=== PATIENT | male | born 1980 | race Hispanic/Latino ===

== ENCOUNTER 2024-02-25 21:08 | Emergency (ER) | payer SELFPAY ==
[2024-02-25] MEDS ORDERED: dexAMETHasone 10 MG/ML VIAL ONE (21:36)
--- NOTE | 2024-02-25 21:37 | ER ---
Nurse's Notes [facility] Name: Oumar Borja Age: 43 yrs Sex: Male : 1980 Arrival Date: 02/25/2024 Time: 21:08 Bed 20 Private MD: Diagnosis: Peritonsillar abscess Presentation: 02/24 21:21 Chief complaint: I have swelling on the right side of the roof of my mouth and the jb4 right side of my uvula. I was sick last week, it got better, then I started noticing last night my throat was feeling weird and today I noticed the swelling. Coronavirus screen: At this time, the client does not indicate any symptoms associated with coronavirus-19. Ebola Screen: No symptoms or risks identified at this time. Initial Sepsis Screen: Does the patient meet any 2 criteria? No. Patient's initial sepsis screen is negative. Does the patient have a suspected source of infection? No. Patient's initial sepsis screen is negative. Risk Assessment: Do you want to hurt yourself or someone else? Patient reports no desire to harm self or others. Onset of symptoms was February 25, 2024. Transition of care: patient was not received from another setting of care. 21:21 Method Of Arrival: Ambulatory jb4 21:21 Acuity: STEPHEN 3 jb4 Historical: - Allergies: 21:25 PENICILLINS; jb4 - PMHx: 21:25 None; jb4 - PSHx: 21:25 Right knee; jb4 - Immunization history:: Adult Immunizations up to date. - Infectious Disease History:: Denies. - Social history:: Smoking status: Patient denies any tobacco usage or history of. Screenin:19 [facility] ED Fall Risk Assessment (Adult) History of falling in the last 3 months, bm8 including since admission No falls in past 3 months (0 pts). [facility] ED Fall Risk Assessment (Adult) Confusion or Disorientation No (0 pts) Intoxicated or Sedated No (0 pts) Impaired Gait No (0 pts) Mobility Assist Device Used No (0 pt) Altered Elimination No (0 pt) Score/Fall Risk Level 0 - 2 = Low Risk Oriented to surroundings, Maintained a safe environment, Educated pt \T\ family on fall prevention, incl call for assistance when getting out of bed, Assessed \T\ reinforced patient's understanding of fall precautions, Hourly rounding (assess needs \T\ fall precautionary measures) done, Used ambulatory aids as needed (educated on \T\ assisted with), Used gait belt as appropriate. Abuse screen: Denies threats or abuse. Nutritional screening: No deficits noted. Tuberculosis screening: No symptoms or risk factors identified. Assessment: 21:19 Reassessment: Patient appears in no apparent distress at this time. Patient and/or bm8 family updated on plan of care and expected duration. Pain level reassessed. Patient is alert, oriented x 3, equal unlabored respirations, skin warm/dry/pink. General: Appears in no apparent distress. comfortable, Behavior is calm, cooperative, appropriate for age. Pain: Denies pain. Neuro: No deficits noted. Level of Consciousness is awake, alert, obeys commands, Oriented to person, place, time, situation, Appropriate for age. Cardiovascular: Heart tones S1 S2 present Capillary refill < 3 seconds Patient's skin is warm and dry. Respiratory: Airway is patent Respiratory effort is even, unlabored, Respiratory pattern is regular, symmetrical, Breath sounds are clear bilaterally. GI: No signs and/or symptoms were reported involving the gastrointestinal system. : No signs and/or symptoms were reported regarding the genitourinary system. EENT: Throat is reddened has enlarged tonsils on right bilaterally with gag reflex present, Reports difficulty swallowing nasal congestion. Musculoskeletal: No signs and/or symptoms reported regarding the musculoskeletal system. 21:50 Reassessment: Patient appears in no apparent distress at this time. No changes from 8 previously documented assessment. Patient and/or family updated on plan of care and expected duration. Pain level reassessed. Patient is alert, oriented x 3, equal unlabored respirations, skin warm/dry/pink. Vital Signs: 21:21 BP 156 / 84; Pulse 86; Resp 16; Temp 99(O); Pulse Ox 97% on R/A; Weight 104.33 kg (R); jb4 Height 5 ft. 11 in. ; Pain 0/10; 21:50 BP 150 / 79; Pulse 70; Resp 18; Temp 99; Pulse Ox 99% ; Pain 0/10; bm8 21:21 Body Mass Index 32.08 (104.33 kg, 180.34 cm) jb4 21:21 Pain Scale: Adult jb4 21:50 Pain Scale: Adult bm8 Sneha Coma Score: 21:50 Eye Response: spontaneous(4). Motor Response: obeys commands(6). Verbal Response: bm8 oriented(5). Total: 15. ED Course: 21:09 Patient arrived in ED. ra3 21:09 Raghavendra Barriga MD is Attending Physician. ec2 21:19 Anshul Myers, RN is Primary Nurse. bm8 21:19 Patient has correct armband on for positive identification. Bed in low position. Call bm8 light in reach. Side rails up X 1. Adult w/ patient. Client placed on continuous cardiac and pulse oximetry monitoring. NIBP monitoring applied. Pulse ox on. NIBP on. Door closed. Warm blanket given. Pillow given. Verbal reassurance given. Head of bed elevated. 21:25 Triage completed. jb4 21:25 Arm band placed on right wrist. jb4 21:37 Kim Shi MD is Referral Physician. ec2 21:50 Provided Education on: post er care. bm8 21:50 No provider procedures requiring assistance completed. Patient did not have IV access bm8 during this emergency room visit. Administered Medications: 21:37 Drug: Clindamycin PO 300 mg PO once Route: PO; bm8 21:49 Follow up: Response: No adverse reaction bm8 21:37 Drug: Dexamethasone IM 10 mg IM once Route: IM; Site: right deltoid; bm8 21:49 Follow up: Response: No adverse reaction bm8 Medication: 21:19 VIS not applicable for this client. bm8 Outcome: 21:37 Discharge ordered by . ec2 21:50 Discharged to home ambulatory, bm8 21:50 Condition: stable 21:50 Discharge instructions given to patient, family, Instructed on discharge instructions, follow up and referral plans. Demonstrated understanding of instructions, follow-up care, medications, Prescriptions given X 1, 21:51 Patient left the ED. bm8 Signatures: Hair Vargas RN RN jb4 Raghavendra Barriga MD MD [facility] Kay Andrews ra3 Anshul Myers, RN RN bm8
--- NOTE | 2024-02-25 21:37 | EDPHYS ---
Physician Documentation [facility] Name: Oumar Borja Age: 43 yrs Sex: Male : 1980 Arrival Date: 02/25/2024 Time: 21:08 Bed 20 Private MD: ED Physician Raghavendra Barriga HPI: 02/24 21:34 This 43 yrs old Male presents to ER via Ambulatory with complaints of Sore ec2 Throat, Breathing Difficulty. 21:34 Patient arrives today for evaluation of odynophagia. Patient reports that he has been ec2 experiencing worsening pain. Patient reports no fever or chills, does describe some congestion, no vomiting, no diarrhea. Does have penicillin allergy. Patient is been tolerating p.o., pain is improved with Tylenol use at home.. Historical: - Allergies: 21:25 PENICILLINS; jb4 - PMHx: 21:25 None; jb4 - PSHx: 21:25 Right knee; jb4 - Immunization history:: Adult Immunizations up to date. - Infectious Disease History:: Denies. - Social history:: Smoking status: Patient denies any tobacco usage or history of. ROS: 21:34 Constitutional: as per hpi ec2 Exam: 21:34 Constitutional: GEN: NAD Head: atraumatic Eyes: EOMI Ears: External ears are normal. ec2 Mouth: Small right peritonsillar abscess noted. CV: regular rate LUNGS: no respiratory distress ABD: non-distended SKIN: no evidence of rashes MSK: no evidence of trauma Vital Signs: 21:21 BP 156 / 84; Pulse 86; Resp 16; Temp 99(O); Pulse Ox 97% on R/A; Weight 104.33 kg (R); jb4 Height 5 ft. 11 in. ; Pain 0/10; 21:50 BP 150 / 79; Pulse 70; Resp 18; Temp 99; Pulse Ox 99% ; Pain 0/10; bm8 21:21 Body Mass Index 32.08 (104.33 kg, 180.34 cm) jb4 21:21 Pain Scale: Adult jb4 21:50 Pain Scale: Adult bm8 Sneha Coma Score: 21:50 Eye Response: spontaneous(4). Motor Response: obeys commands(6). Verbal Response: bm8 oriented(5). Total: 15. MDM: 21:17 Patient medically screened. ec2 21:34 Data reviewed: vital signs. ED course: Patient arrives today for evaluation of ec2 odynophagia. Examination remarkable for HEENT findings as noted above. Presentation consistent with peritonsillar abscess. Most recent studies indicate no significant difference with antibiotics only versus antibiotics with incision and drainage. Patient is already tolerating p.o. without intervention. I do shared decision making regarding possible incision and drainage versus antibiotic therapy alone and we decided on antibiotic therapy alone. I instructed him to return if symptoms worsen change or he has inability to tolerate p.o. and patient and family ember were agreeable. Return precautions given. Administered Medications: 21:37 Drug: Clindamycin PO 300 mg PO once Route: PO; bm8 21:49 Follow up: Response: No adverse reaction bm8 21:37 Drug: Dexamethasone IM 10 mg IM once Route: IM; Site: right deltoid; bm8 21:49 Follow up: Response: No adverse reaction bm8 Disposition Summary: 02/25/24 21:37 Discharge Ordered Notes: Location: Home ec2 Condition: Stable ec2 Diagnosis - Peritonsillar abscess ec2 Followup: ec2 - With: Kim Shi MD - When: - Reason: Recheck today's complaints Discharge Instructions: - Discharge Summary Sheet ec2 - Peritonsillar Cellulitis ec2 Forms: - Medication Reconciliation Form ec2 - Antibiotic Education ec2 - Prescription Opioid Use ec2 - Patient Portal Instructions ec2 - Leadership Thank You Letter ec2 Prescriptions: - Clindamycin HCl 300 mg Oral Capsule - take 1 capsule ORAL route every 6 hours for 10 days; 40 capsule; Refills: 0, ec2 Product Selection Permitted Signatures: Hair Vargas, RN RN jb4 Raghavendra Barriga MD MD ec2 Anshul Myers RN RN bm8
[2024-02-25 21:56] VITALS: TEMP 99
[2024-02-25 21:58] VITALS: BP 150/79; O2SAT 99
== END 2024-02-25 21:51 | disposition home or self-care (01) ==
LOC: ER 21:08
DX: J36 Peritonsillar abscess (principal); Z88.0 Allergy status to penicillin
CPT/HCPCS: 96372; 99284; J1100